=== PATIENT | female | born 1970 | race Caucasian/White ===

== ENCOUNTER 2022-04-07 02:26 | Observation (INO) ==
[2022-04-07] MEDS ORDERED: Haloperidol Lactate 5 MG/ML VIAL IM ONE (05:30)
[2022-04-07] MEDS ORDERED: *HR* LORazepam 2 MG/ML VIAL IM ONE (05:30)
[2022-04-07] MEDS ORDERED: Iopamidol - 370 500 ML MLS IVP ONE (05:56)
[2022-04-07] MEDS ORDERED: Famotidine 20 MG/2 ML VIAL IVP ONE (05:59)
[2022-04-07] MEDS ORDERED: 0.9 % Sodium Chloride 1,000 ML IV ONE (06:07)
[2022-04-07] MEDS ORDERED: Ondansetron 4 MG/2 ML VIAL IM ONE (06:08)
[2022-04-07 06:15] LABS: Hematocrit 43.5 % (35.3-44.9); Hemoglobin 14.9 g/dL (11.5-15.4); Mean Corpuscular HGB Conc 34.3 g/dL (31.6-35.5); Mean Corpuscular Hemoglobin 31.2 pg (28.0-33.3); Mean Platelet Volume 9.4 fL (9.4-12.4); Platelet Count 278 K/mcL (140-400); Red Blood Count 4.78 M/mcL (3.82-4.97); White Blood Count 10.9 K/mcL (4.3-11.1)
[2022-04-07] MEDS ORDERED: Ondansetron 4 MG/2 ML VIAL IVP ONE (06:15)
[2022-04-07 06:16] LABS: Bilirubin,Urine Negative (Negative); Blood,Urine Trace (Negative); Clarity,Urine Clear (Clear); Color,Urine Yellow (Yellow); Glucose,Urine (UA) Normal (Normal); Hyaline Casts,Urine Few per lpf (None Seen); Ketones,Urine Negative (Negative); Leukocyte Esterase,Urine Negative (Negative); Mucus,Urine Few per lpf (None-Few); Nitrite,Urine Negative (Negative); Protein,Urine 30 mg/dL (Neg-Trace); Specific Gravity,Urine 1.029 (1.010-1.025); Squamous Epithelial Cell,Urine Few per hpf (None-Few); WBC,Urine 0-3 per hpf (0-3)
[2022-04-07 06:45] LABS: Alanine Aminotransferase 34 Units/L (7-52); Albumin 4.7 g/dL (3.5-5.7); Albumin/Globulin Ratio 1.7 (1.1-2.2); Alkaline Phosphatase 69 Units/L (34-104); Aspartate Amino Transferase 28 Units/L (13-39); BUN/Creatinine Ratio 16 (6-26); Bilirubin,Total 0.5 mg/dL (0.3-1.0); Blood Urea Nitrogen 15 mg/dL (6-20); Calcium 9.7 mg/dL (8.6-10.3); Carbon Dioxide 30 mEq/L (23-29); Chloride 102 mEq/L (98-107); Globulin 2.7 g/dL (2.4-3.5); Glucose 133 mg/dL (70-105); Lipase 54 Units/L (11-82); Osmolality,Calculated 291 (280-300); Potassium 3.5 mEq/L (3.5-5.1); Sodium 139 mEq/L (136-145); Total Protein 7.4 g/dL (6.4-8.9); eGFR For African Americans > 60 (> 60); eGFR For Non-African Americans > 60 (> 60)
[2022-04-07] MEDS ORDERED: Piperacillin/Tazobactam 3.375 GM in 0.9 % Sodium Chloride Mini Bag 100 ML IVPB ONE (10:02)
[2022-04-07] MEDS ORDERED: Acetaminophen 325 MG TABLET PO PRN ×2 (10:48→17:39)
[2022-04-07] MEDS ORDERED: Naloxone 0.4 MG/ML INJ IVP PRN ×2 (10:48→17:39)
[2022-04-07] MEDS ORDERED: Ondansetron 4 MG/2 ML VIAL IVP PRN ×3 (10:48→17:39)
[2022-04-07] MEDS ORDERED: *HR* OxyCODONE Immed Rel 5 MG TABLET PO PRN ×3 (10:48→17:39)
[2022-04-07] MEDS ORDERED: *HR* HYDROcodone/Acet 5/325 mg TABLET PO PRN ×2 (10:48→17:39)
[2022-04-07] MEDS ORDERED: Pantoprazole 40 MG VIAL IVP SCH (11:00)
[2022-04-07] MEDS ORDERED: Promethazine 6.25 MG in Water for inj. (sterile) 20 ML IVPB PRN (14:19)
[2022-04-07] MEDS ORDERED: *HR* HYDROmorphone PF 0.5 MG/0.5 ML SYRINGE IVP PRN (14:19)
[2022-04-07] MEDS ORDERED: *HR* Propofol 200 MG/20 ML VIAL IVP ONE (14:48)
[2022-04-07] MEDS ORDERED: *HR* Rocuronium Bromide 50 MG/5 ML VIAL ONE (14:48)
[2022-04-07] MEDS ORDERED: *HR* FentaNYL (PF) 100 MCG/2 ML VIAL ONE (14:48)
[2022-04-07] MEDS ORDERED: *HR* Succinylcholine 200 MG/10 ML VIAL IVP ONE (14:48)
[2022-04-07] MEDS ORDERED: Lidocaine -MPF 2% 5 ML VIAL ONE (14:48)
[2022-04-07] MEDS ORDERED: Lidocaine HCL 4 ML Topical Solution (Laryng-O-Jet Kit Sterile Pak) TP ONE (14:48)
[2022-04-07] MEDS ORDERED: *HR* Midazolam HCl 2 MG/2 ML VIAL ONE (14:48)
[2022-04-07] MEDS ORDERED: Ondansetron 4 MG/2 ML VIAL ONE (14:48)
[2022-04-07] MEDS ORDERED: Acetaminophen IV 1,000 MG/100 ML BAG IVPB ONE ×2 (15:39)
[2022-04-07] MEDS ORDERED: *HR* HYDROMORPHONE 2 MG/ML VIAL ONE (15:57)
[2022-04-07] MEDS ORDERED: Piperacillin/Tazobactam 3.375 GM in 0.9 % Sodium Chloride Mini Bag 100 ML IVPB SCH (16:00)
[2022-04-07] MEDS ORDERED: Sugammadex Sodium 200 MG/2 ML VIAL IV ONE (16:10)
[2022-04-07] MEDS ORDERED: *HR* Heparin 5,000 UNIT/ML VIAL SQ SCH (18:00)
[2022-04-07] MEDS: *HR* Heparin 5,000 UNIT/ML VIAL SQ SCH (18:01)
[2022-04-07] MEDS: Piperacillin/Tazobactam 3.375 GM in 0.9 % Sodium Chloride Mini Bag 100 ML IVPB SCH (23:51)
[2022-04-08 01:40] LABS: Basophils % 0.2 %; Hemoglobin 14.2 g/dL (11.5-15.4); Immature Granulocytes % 0.2 % (0-4); Lymphocytes # 1.3 K/mcL (0.6-4.6); Lymphocytes % 10.2 %; Mean Corpuscular HGB Conc 33.8 g/dL (31.6-35.5); Mean Corpuscular Hemoglobin 30.5 pg (28.0-33.3); Mean Corpuscular Volume 90.1 fL (83.0-100.0); Mean Platelet Volume 8.9 fL (9.4-12.4); Monocytes # 0.3 K/mcL (0.0-1.3); Monocytes % 2.1 %; Platelet Count 251 K/mcL (140-400); Red Blood Count 4.66 M/mcL (3.82-4.97); Red Cell Distribution Width 11.9 % (11.5-14.5); Segmented Neutrophils % 87.3 %; White Blood Count 12.6 K/mcL (4.3-11.1)
[2022-04-08 02:00] LABS: BUN/Creatinine Ratio 15 (6-26); Blood Urea Nitrogen 13 mg/dL (6-20); Calcium 9.1 mg/dL (8.6-10.3); Carbon Dioxide 27 mEq/L (23-29); Chloride 103 mEq/L (98-107); Glucose 180 mg/dL (70-105); Osmolality,Calculated 287 (280-300); Potassium 3.9 mEq/L (3.5-5.1); Sodium 136 mEq/L (136-145); eGFR For African Americans > 60 (> 60); eGFR For Non-African Americans > 60 (> 60)
[2022-04-08 03:43] VITALS: TEMP 97.5; O2SAT 93
[2022-04-08] MEDS: *HR* Heparin 5,000 UNIT/ML VIAL SQ SCH (05:57)
[2022-04-08 07:47] VITALS: BP 146/78; PULSE 67
[2022-04-08] MEDS: Piperacillin/Tazobactam 3.375 GM in 0.9 % Sodium Chloride Mini Bag 100 ML IVPB SCH (07:53)
[2022-04-08] MEDS ORDERED: Pantoprazole 40 MG VIAL IVP SCH (09:00)
== END 2022-04-08 11:07 | disposition home or self-care (01) ==
LOC: EMEROOARM 02:26 → 3BNU 02:26 → SUATTDRO 12:27 → 3BNU 13:57
PROVIDERS: ADMIT Internal Medicine; ATTEND Registered Nurse